=== PATIENT | male | born 2005 | race African-American/Black ===

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

== ENCOUNTER 2024-09-08 18:27 | Emergency (ER) | payer OTHER ==
[2024-09-08 18:54] VITALS: RESP 18; BMI 20.1
[2024-09-08] MEDS ORDERED: ONDANSETRON 4 MG/2 ML VIAL ONE (20:11)
[2024-09-08] MEDS: SODIUM CHLORIDE 1,000 ML IV STA (20:20)
[2024-09-08] MEDS: ONDANSETRON 4 MG/2 ML VIAL IVPUSH ONE (20:21)
[2024-09-08 20:27] LABS: MCH 29.3 pg (25.7-33.7); MEAN PLT VOLUME 9.3 fl (7.5-11.1); PLATELET COUNT 261 10^3/uL (134-434); RBC 5.47 M/mm3 (4.00-5.60); RDW 13.1 % (11.9-15.9); WHITE BLOOD COUNT 18.2 K/mm3 (4.0-10.0)
[2024-09-08 20:45] LABS: POTASSIUM 4.1 mmol/L (3.5-5.1)
[2024-09-08 20:47] LABS: CALCIUM 10.1 mg/dL (8.5-10.1)
[2024-09-08 20:48] LABS: BLOOD UREA NITROGEN 13.3 mg/dL (7-18); MAGNESIUM 1.9 mg/dL (1.8-2.4)
[2024-09-08 20:51] LABS: CREATININE 0.9 mg/dL (0.55-1.3)
[2024-09-08 20:52] LABS: BILIRUBIN,TOTAL 0.6 mg/dL (0.2-1); TOT PROT 8.5 g/dl (6.4-8.2)
[2024-09-08] MEDS ORDERED: ACETAMINOPHEN INJECTION 100 ML ONE (21:12)
[2024-09-08] MEDS: ACETAMINOPHEN 1000 MG/100 ML BAG IVPB ONE (21:15)
[2024-09-08 21:28] LABS: ANISOCYTOSIS 1+; MACROCYTOSIS 0
[2024-09-08 22:59] VITALS: BP 121/83; PULSE 88; TEMP 99.4
== END 2024-09-08 22:59 | disposition home or self-care (01) ==
LOC: JER 18:27
PROC: 3E033NZ Introduction of Analgesics, Hypnotics, Sedatives into Peripheral Vein, Percutaneous Approach (ICD-10-PCS; principal; 2024-09-08)
PROC: 3E033GC Introduction of Other Therapeutic Substance into Peripheral Vein, Percutaneous Approach (ICD-10-PCS; 2024-09-08)
PROC: 3E0337Z Introduction of Electrolytic and Water Balance Substance into Peripheral Vein, Percutaneous Approach (ICD-10-PCS; 2024-09-08)
DX: R11.2 Nausea with vomiting, unspecified (principal); R19.7 Diarrhea, unspecified; Z20.822 Contact with and (suspected) exposure to COVID-19
CPT/HCPCS: 0241U-QW; 36415; 74177-TC; 80053; 83735; 85025; 96361; 96374; 96375; 99285-25; J0131; Q9967

== ENCOUNTER 2024-10-12 07:15 | Emergency (ER) | payer OTHER ==
[2024-10-12] MEDS ORDERED: BACITRACIN ZINC 15 GM TUBE TOPICAL OINTMENT ONE (07:30)
[2024-10-12 07:31] VITALS: BP 122/60; PULSE 69; RESP 18; TEMP 99; BMI 20.1
[2024-10-12] MEDS: BACITRACIN ZINC 15 GM TUBE TOPICAL OINTMENT TP ONE (07:35)
== END 2024-10-12 07:43 | disposition home or self-care (01) ==
LOC: JER 07:15
DX: R04.0 Epistaxis (principal)
CPT/HCPCS: 99283-25